=== PATIENT | male | born 1990 | race Caucasian/White ===

== ENCOUNTER 2018-10-31 14:43 | Emergency (ER) | payer MEDICAID, SELFPAY ==
[2018-10-31 14:44] VITALS: BP 137/102; PULSE 102; RESP 16; TEMP 36.7; O2SAT 93; BMI 32.3
--- NOTE | 2018-10-31 15:13 | ED.VISSUMM ---
- ER Visit Summary Date of Service: 10/31/18 Chief Complaint: Sinus pressure History of Present Illness: The patient is a 27 M who presents with sinus pressure and pain is been getting worse over the past 3 days. Patient describes the pain as a pressure over the frontal and ethmoid areas. Patient denies any fevers or chills. Patient denies any rhinorrhea. Patient denies any sore throat. Patient denies any cough. Patient states he has been drinking water with no improvement. Physical Examination: Vital signs are stable. Patient is afebrile. Patient is in no acute distress. Tympanic membranes are occluded by cerumen bilaterally. Nasal mucosa is congested. There is no tenderness to percussion over the frontal or maxillary sinuses. Oropharynx is clear. Neck is supple. Trachea is midline. There is no JVD noted. Heart was regular rate and rhythm. Lungs are clear and equal bilaterally. Cranial nerves II through XII are intact. There are no focal motor or sensory deficits noted. Emergency Department Course and Treatment: Patient was given prescriptions for Flonase and Sudafed. Patient was advised that antibiotics are not indicated at this time. Patient was instructed to follow-up with his primary care physician in 5 to 7 days. Patient understood and was agreeable with the plan. All questions were answered. Disposition: Discharge home Impression: Sinus headache This note was generated with [employer] dictation software. It may contain incorrect words, spelling, and punctuation that were not noted in review of the chart prior to signing ED Disposition - Plan for ED Patient: Disposition: Home or Assisted Living Diagnosis: Sinus headache Instructions: Sinus Headache Prescriptions: Fluticasone 0.05% [Flonase Nasal [place]] 1 spray NASAL DAILY #1 bottle Prescription Printed Pseudoephedrine HCl [Sudafed 24-Hour] 240 mg PO DAILY PRN PRN #[id number] PRN Reason: Sinus Congestion Prescription Printed Referrals: Astrid Epperson NP-C [Primary Care Provider] - 5-7 Days
[2018-10-31 15:31] VITALS: BP 117/75
--- NOTE | 2018-10-31 16:17 | CM.ED ---
Social Work Referral: Transportation to home. Informant: Volunteer Met with patient in ER waiting room after patient has been discharged from the ER. Patient did not have transportation back to home. This social organization professor assisted patient in finding bus stop for [employer] as patient reported to have [employer] card. Patient was able to get on [place] [employer] bus. Keri MAHAN, CHERY
== END 2018-10-31 15:32 | disposition home or self-care (01) ==
PROVIDERS: Emergency Provider Emergency Medicine; Family Provider Nurse Practitioner Family; PCP Nurse Practitioner Family
DX: R51 Headache (principal); Z72.0 Tobacco use; F32.9 Major depressive disorder, single episode, unspecified; R56.9 Unspecified convulsions; Z79.899 Other long term (current) drug therapy
CPT/HCPCS: 99282

== ENCOUNTER 2019-01-02 03:26 | Emergency (ER) | payer MEDICAID, SELFPAY ==
[2019-01-02 03:27] VITALS: BP 143/89; PULSE 97; RESP 18; TEMP 36.6; O2SAT 97; BMI 33.0
--- NOTE | 2019-01-02 03:37 | RAD_ITS ---
STUDY: X-RAY - RIGHT ANKLE REASON FOR EXAM: Male, 28 years old. Pain after falling. TECHNIQUE: 2 view(s) of the ankle. COMPARISON: None. FINDINGS: Markedly comminuted distal tibial fracture extending from the distal shaft through the articular surface with one half shaft width lateral and anterior displacement of the dominant fracture fragments and mild anterior angulation. The comminution is most severe in the anterior distal tibia with there is additional peripheral displacement of several small fracture fragments. The tibial articular surface fracture fragments are splayed over the talar dome. A transverse fracture line extends through the medial malleolus, this fracture is not displaced. Acute fracture through the distal shaft of the fibula with one shaft width lateral and anterior displacement. Soft tissue swelling adjacent to the fractures. The talus, navicular, calcaneus, and other visualized bones of the foot show no apparent fracture. RAD/Ankle min 3 Views IMPRESSION: Markedly comminuted and displaced distal tibial fracture. Displaced fracture distal shaft of the fibula. Electronically Signed: Hola Brown, at 4:05 EDT Tel , Service support ,
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
[2019-01-02] MEDS: Ketorolac 30 MG/ML Syringe IV (03:40)
[2019-01-02 04:19] LABS: Absolute Lymphocyte Count 3.23 X10^3/uL (0.83-4.51); Absolute Neutrophil Count 10.8 X10^3/uL (2.0-7.7); Basophil# 0.07 X10^3/uL; Basophil% 0.4 % (0-1); Eosinophil# 0.29 X10^3/uL; Eosinophils% 1.9 % (0-5); Hematocrit 50.8 % (40-54); Hemoglobin 17.1 g/dL (13.0-16.5); Lymphocyte # 3.23 X10^3/ul (4.0); Lymphocyte % 20.6 % (19-41); Mean Corp Hgb Conc 33.7 g/dL (32-36); Mean Corpuscular Hgb 31.4 pg (27.0-32.0); Mean Corpuscular Volume 93.4 fL (80-94); Mean Platelet Vol. 11.2 fl (6.2-12.0); Monocyte% 6.4 % (0-10); NRBC Flagged by Analyzer 0 % (0-5); Neutrophil # 10.83 X10^3/uL (2.7-7.7); Neutrophil % 69.2 % (47-70); Platelet Count 216 K/mm3 (150-450); RBC Distribution Width CV 13.1 % (11.6-14.6); RBC Distribution Width SD 44.5 fl (35.1-43.9); Red Blood Count 5.44 M/mm3 (4.6-6.2); White Blood Count 15.7 K/mm3 (4.4-11.0)
[2019-01-02 04:29] LABS: Anion Gap 10 (5-15); BUN 7 mg/dL (7-18); BUN/Creat Ratio 5.6 RATIO (10-20); Calcium,Total 9.6 mg/dL (8.5-10.1); Chloride 108 mmol/L (98-107); Creatinine, Serum 1.24 mg/dL (0.70-1.30); EST Glomerular Filtration Rate 74 mL/min (>60); Est Glom Filt Rate - Afr Amer 89 mL/min (>60); Glucose 120 mg/dL (74-106); Potassium 3.7 mmol/L (3.5-5.1); Sodium Level 144 mmol/L (136-145)
[2019-01-02] MEDS: Morphine 4 MG/ML Syringe IV (05:15)
[2019-01-02 05:48] VITALS: BP 131/76; PULSE 94; RESP 18; TEMP 36.7; O2SAT 97
== END 2019-01-02 06:07 | disposition short-term general hospital (02) ==
PROVIDERS: Emergency Provider Emergency Medicine; Referring Provider Nurse Practitioner Family
DX: S82.871A Displaced pilon fracture of right tibia, initial encounter for closed fracture (principal); S82.831A Other fracture of upper and lower end of right fibula, initial encounter for closed fracture; F32.9 Major depressive disorder, single episode, unspecified; F20.9 Schizophrenia, unspecified; F41.9 Anxiety disorder, unspecified; F17.200 Nicotine dependence, unspecified, uncomplicated; W17.89XA Other fall from one level to another, initial encounter; Y93.89 Activity, other specified; Y92.008 Other place in unspecified non-institutional (private) residence as the place of occurrence of the external cause; Y99.8 Other external cause status
CPT/HCPCS: 73610; 80048; 85025; 96374; 96375; 99285; A4216

== ENCOUNTER 2019-01-10 19:10 | Inpatient (IN) | payer MEDICAID, SELFPAY ==
[2019-01-10 19:10] VITALS: BP 135/67; PULSE 102; RESP 18; TEMP 36.8; O2SAT 94
[2019-01-10 19:47] VITALS: BMI 31.8
[2019-01-10 19:57] VITALS: BP 136/70; PULSE 97; RESP 17; TEMP 36.9; O2SAT 93
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
[2019-01-10] MEDS: Senna/Docusate Sodium 1 Tablet 2 TABLET PO (22:06)
[2019-01-10] MEDS: traZODone 50 MG Tablet PO (22:07)
[2019-01-11] MEDS: oxyCODONE 5 MG Tablet PO ×5 (03:33→23:01)
--- NOTE | 2019-01-11 03:38 | NURSING ---
PT WAKES WITH PAIN TO R FOOT. MEDICATED. PT'S SENSATION IMPROVING TO R FOOT/LOWER LEG AND NO LONGER NUMBER.PT REMAINS UNABLE TO MOVE TOES R FOOT AT THIS TIME. FOOT IS WARM AND PINK. RLE REMAINS ELEVATED.
[2019-01-11] MEDS: Acetaminophen 325 MG Tablet 650 MG PO (04:10)
[2019-01-11 06:12] LABS: Absolute Lymphocyte Count 1.68 X10^3/uL (0.83-4.51); Absolute Neutrophil Count 16.3 X10^3/uL (2.0-7.7); Basophil# 0.03 X10^3/uL; Basophil% 0.2 % (0-1); Hematocrit 36.5 % (40-54); Hemoglobin 12.4 g/dL (13.0-16.5); Lymphocyte # 1.68 X10^3/ul (4.0); Lymphocyte % 8.5 % (19-41); Mean Corpuscular Hgb 31.2 pg (27.0-32.0); Mean Corpuscular Volume 91.7 fL (80-94); Mean Platelet Vol. 9.8 fl (6.2-12.0); Monocyte# 1.56 X10^3/uL; Monocyte% 7.9 % (0-10); NRBC Flagged by Analyzer 0 % (0-5); Neutrophil % 82.8 % (47-70); POSITIVE DIFFERENTIAL YES; Platelet Count 290 K/mm3 (150-450); RBC Distribution Width CV 12.4 % (11.6-14.6); RBC Distribution Width SD 41.6 fl (35.1-43.9); Red Blood Count 3.98 M/mm3 (4.6-6.2); White Blood Count 19.7 K/mm3 (4.4-11.0)
[2019-01-11 06:28] LABS: ALB/GLOB Ratio 0.7 RATIO (0.9-2.4); AST(SGOT) 42 U/L (15-37); Alanine Aminotransfer ALT/SGPT 136 U/L (16-61); Albumin, Serum 2.8 g/dL (3.2-5.0); Alkaline Phosphatase 117 U/L (45-117); Anion Gap 8 (5-15); BUN 8 mg/dL (7-18); BUN/Creat Ratio 11.8 RATIO (10-20); Chloride 106 mmol/L (98-107); Creatinine, Serum 0.68 mg/dL (0.70-1.30); EST Glomerular Filtration Rate 148 mL/min (>60); Est Glom Filt Rate - Afr Amer 179 mL/min (>60); Globulin 3.8 g/dL (2.2-4.2); Glucose 139 mg/dL (74-106); Potassium 3.8 mmol/L (3.5-5.1); Protein, Total 6.6 g/dL (6.4-8.2); Sodium Level 140 mmol/L (136-145)
[2019-01-11 06:29] LABS: Differential Indicated SCAN CRITERIA MET
[2019-01-11 07:03] VITALS: BP 136/70; PULSE 89; RESP 16; TEMP 36.9; O2SAT 94
[2019-01-11] MEDS: Divalproex (ER) 250 MG Tablet PO (07:48)
[2019-01-11] MEDS: Benztropine 2 MG Tablet 1 MG PO (07:48)
[2019-01-11] MEDS: Famotidine 20 MG Tablet PO ×2 (07:48→20:08)
[2019-01-11] MEDS: Senna/Docusate Sodium 1 Tablet 2 TABLET PO ×2 (07:49→20:08)
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
[2019-01-11 10:02] LABS: Pathologist Review Reviewed
[2019-01-11 10:55] LABS: Valproic Acid (Depakene) Level 10 ug/mL (50-100)
--- NOTE | 2019-01-11 11:30 | NURSING ---
[facility] of patient to have Lovenox while here for DVT prophylaxis per Dr. Esposito.
--- NOTE | 2019-01-11 13:57 | PCM.RU.PYE ---
Admission Information Status Changes from Prescreening?: No changes Identified Actual Problem List:: Mobility Impaired, Self Care Deficit Potential Problem List:: DVT, Bleeding, Infection, UTI, Aspiration, Falls, Skin Integrity, Depression Risk of Complications DVT: LMWH, DELANO Hose, Sequential Compression Device Bleeding: Monitor Lab Values, Nursing to Teach Precautions for anti-coagulation therapy., Wound, if applicable, to be assessed every shift., Stroke patients assessed for lethargy or change in status. Infection: Clinical Staff to Monitor for S/S of infection:, S/S of infection include fever, redness, warmth, etc. Urinary Tract Infection: Monitor for frequency, burning, discomfort, or incontinence., Nursing will obtain urine sample for urinalysis and C&S when ordered. Aspiration: Clinical staff will monitor for coughing, drooling, congestion., Speech will evaluate swallowing and dsyphasia., Nursing will monitor patient swallowing during meals. Falls: Patient will be evaluated for Fall Precautions, Patient will be placed on Fall Precautions as indicated per protocol. Skin Breakdown: Nursing will assess skin daily using assessment tool., Nursing will place on Skin Breakdown Precautions as indicated. Pain: Clinical staff will assess patient's pain level per protocol., Medications will be given, if needed, and the pain level reassessed., Other methods: Massage, distraction, decrease stimulus, etc. used PRN. Plan of Care Patient requires physician specializing in physical medicine and rehab oversight to provide close medical supervision of rehab issues including: Pain Management, Sleep Problems, Bowel and Bladder, Medical and co-morbidity Management, DVT prophylaxis, Rehabilitation Leadership, Coordination of treatment team Patient needs Physical Therapy: For a minimum of 1 hour, At least 5 out of 7 days Patient needs Physical Therapy to improve:: Mobility, Mobility, Mobility, Strengthening, Transfers, Stretching, ROM, Endurance, Stairs, Gait, Balance Patient needs Occupational Therapy: For a minimum of 1 hour, At least 5 out of 7 days Patient needs Occupational Therapy to improve ADL's incl.: Eating, Grooming, Bathing, Dressing, Toileting, Toilet transfers, Community Reintegration, Higher functioning activities, Household tasks, Adaptive Equipment, Splinting, Other activities as determined Patient requires speech therapy: For a minimum of 1 hour, At least 5 out of 7 days Patient requires speech therapy for: Swallowing, Cognition, Language Skills, Compensatory Strategies Patient requires 24/ Rehabilitation Nursing for: Pain Issues, Identifying and preventing risk factors, Monitoring and reporting current medical conditions, Assisting with ambulation, transfer, and all ADL's, Teaching patients about disease process and medications, Family teaching, Providing safe environment, Bowel and Bladder Issues, Skin integrity, Medication Management Patient needs Store Merchandiser/ Case Management for: Discharge Planning, Arranging Home Equipment or Services, Family Interventions Patient needs Dietary and Nutrition Services for: Adequate Nutrition, Nutritional Supplements, Nutritional Education Goals Patient will remain: free from falls, or injury at time of discharge. Patient will perform bed mobility at: MOD I level of assist. Patient will complete transfers from bed to chair at: MOD I level of assist. Patient will ambulate: 100 feet, with MOD I assist, with LRD Patient will complete upper body dressing at: MOD I level of assist. Patient will complete lower body dressing at: MOD I level of assist. Patient will complete toileting at: MOD I level of assist. Patient will perform bathing at: MOD I level of assist. Patient will complete grooming at: MOD I level of assist. Patient will complete home management skills at: MOD I level of assist. Patient will achieve: 12 stairs, at MOD I assist Patient will have pain level of: of 3 or less Patient's skin will: remain intact, free from infection. Patient will receive: adequate nutrition. Discharge Planning Pt Prognosis for Sig. Practical Improv. w/in Reasonable Time: Good Estimated Length of stay (days): 16 Anticipated D/C Destination: Home with Outpt Therapy Was Preadmission Assessment Accurate?: Yes
[2019-01-11] MEDS: Enoxaparin 40 MG/0.4 ML Syringe SC (13:59)
--- NOTE | 2019-01-11 16:17 | CHAPLAIN ---
Type of Pastoral Visit _x__ Initial Visit ___ Follow-up Visit ___ On-call Visit ___ General Patient Visit ___ Spiritual Assessment ___ Family Conference ___ Bereavement ___ Rapid Response ___ Code Blue ___ Other (describe below) Pastoral Care Referral From _x__ Patient ___ Family ___ Nurse ___ Physician ___ Smog Technician ___ Eyedotter ___ Other (describe below) Sacrament/Intervention _x__ Active listening ___ Anointing ___ Mormon ___ Bereavement ___ Communion ___ Bianka exploration ___ _x__ Life review ___ Prayer ___ Reconciliation ___ Sacrament of Sick _x__ Supportive presence ___ Wedding ___ Other (describe below) Pastoral Comments
[2019-01-11 16:20] VITALS: O2SAT 98
[2019-01-11 19:26] VITALS: BP 133/74; PULSE 92; RESP 18; TEMP 37.2; O2SAT 97
[2019-01-11] MEDS: Divalproex (ER) 500 MG Tablet PO (20:07)
[2019-01-11] MEDS: traZODone 50 MG Tablet PO (20:09)
[2019-01-11] MEDS: LURASIDONE HCL 120 MG TABLET PO (20:10)
[2019-01-12] MEDS: oxyCODONE 5 MG Tablet PO ×6 (02:38→23:22)
[2019-01-12] MEDS: Enoxaparin 40 MG/0.4 ML Syringe SC (06:17)
[2019-01-12 06:26] LABS: Absolute Lymphocyte Count 3.23 X10^3/uL (0.83-4.51); Absolute Neutrophil Count 6.9 X10^3/uL (2.0-7.7); Basophil# 0.04 X10^3/uL; Basophil% 0.4 % (0-1); Eosinophils% 0.9 % (0-5); Hematocrit 37.6 % (40-54); Hemoglobin 12.5 g/dL (13.0-16.5); Lymphocyte # 3.23 X10^3/ul (4.0); Lymphocyte % 28.6 % (19-41); Mean Corp Hgb Conc 33.2 g/dL (32-36); Mean Corpuscular Hgb 31.1 pg (27.0-32.0); Mean Corpuscular Volume 93.5 fL (80-94); Mean Platelet Vol. 9.7 fl (6.2-12.0); Monocyte# 0.95 X10^3/uL; Monocyte% 8.4 % (0-10); NRBC Flagged by Analyzer 0 % (0-5); Neutrophil # 6.92 X10^3/uL (2.7-7.7); Neutrophil % 61.1 % (47-70); Platelet Count 305 K/mm3 (150-450); RBC Distribution Width SD 44.8 fl (35.1-43.9); Red Blood Count 4.02 M/mm3 (4.6-6.2); White Blood Count 11.3 K/mm3 (4.4-11.0)
[2019-01-12 06:53] LABS: AST(SGOT) 42 U/L (15-37); Alanine Aminotransfer ALT/SGPT 128 U/L (16-61)
[2019-01-12] MEDS: Famotidine 20 MG Tablet PO ×2 (07:32→20:38)
[2019-01-12] MEDS: Benztropine 2 MG Tablet 1 MG PO (07:32)
[2019-01-12] MEDS: Senna/Docusate Sodium 1 Tablet 2 TABLET PO (07:32)
[2019-01-12] MEDS: Divalproex (ER) 250 MG Tablet PO (07:32)
[2019-01-12 08:00] VITALS: BP 127/56; PULSE 94; RESP 18; TEMP 37.2; O2SAT 95
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
[2019-01-12] MEDS: Divalproex (ER) 500 MG Tablet PO (20:38)
[2019-01-12] MEDS: LURASIDONE HCL 120 MG TABLET PO (20:38)
[2019-01-12] MEDS: traZODone 50 MG Tablet PO (20:38)
[2019-01-12 20:41] VITALS: BP 143/72; PULSE 99; RESP 16; TEMP 37; O2SAT 98
[2019-01-13] MEDS: oxyCODONE 5 MG Tablet PO ×6 (03:25→23:00)
[2019-01-13] MEDS: Enoxaparin 40 MG/0.4 ML Syringe SC (05:58)
[2019-01-13 07:22] VITALS: BP 130/72; PULSE 97; RESP 16; TEMP 36.7; O2SAT 95
[2019-01-13] MEDS: Benztropine 2 MG Tablet 1 MG PO (07:28)
[2019-01-13] MEDS: Senna/Docusate Sodium 1 Tablet 2 TABLET PO (07:29)
[2019-01-13] MEDS: Famotidine 20 MG Tablet PO ×2 (07:29→20:31)
[2019-01-13] MEDS: Divalproex (ER) 250 MG Tablet PO (07:29)
[2019-01-13 07:30] VITALS: O2SAT 95
[2019-01-13 18:53] VITALS: BP 125/70; PULSE 105; RESP 16; TEMP 37; O2SAT 98
[2019-01-13] MEDS: Divalproex (ER) 500 MG Tablet PO (20:30)
[2019-01-13] MEDS: traZODone 50 MG Tablet PO (20:30)
[2019-01-13] MEDS: LURASIDONE HCL 120 MG TABLET PO (20:31)
[2019-01-13 20:44] VITALS: RESP 18; O2SAT 97
[2019-01-14] MEDS: oxyCODONE 5 MG Tablet PO ×5 (03:00→20:27)
[2019-01-14] MEDS: Enoxaparin 40 MG/0.4 ML Syringe SC (05:04)
[2019-01-14 07:01] VITALS: BP 117/75; PULSE 100; RESP 16; TEMP 36.7; O2SAT 96
[2019-01-14] MEDS: Divalproex (ER) 250 MG Tablet PO (07:47)
[2019-01-14 09:32] VITALS: PULSE 60; O2SAT 96
[2019-01-14] MEDS: Famotidine 20 MG Tablet PO ×2 (10:22→21:03)
[2019-01-14] MEDS: Benztropine 2 MG Tablet 1 MG PO (10:23)
--- NOTE | 2019-01-14 13:20 | NURSING ---
1315 called into pt room, pt stated not feeling well. checked pt vs and vital signs stable, no temp noted. offered antionette jesse and warm blanket. will monitor. Keyon Rosario RN
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
[2019-01-14 17:57] VITALS: BP 144/69; PULSE 101; RESP 18; TEMP 36.4; O2SAT 98
[2019-01-14 19:55] VITALS: PULSE 101; RESP 18; O2SAT 98
[2019-01-14] MEDS: traZODone 50 MG Tablet PO (21:03)
[2019-01-14] MEDS: LURASIDONE HCL 120 MG TABLET PO (21:03)
[2019-01-14] MEDS: Senna/Docusate Sodium 1 Tablet 2 TABLET PO (21:03)
[2019-01-14] MEDS: Divalproex (ER) 500 MG Tablet PO (21:04)
--- NOTE | 2019-01-14 21:29 | NURSING ---
Pt refused SCDs this hs. Pt educated to the benefits of SCD use while in hospital and per Dr recommendation. Pt reiterated refusa;.
--- NOTE | 2019-01-14 22:24 | NURSING ---
pt calls staff into the room and reports that his leg is jumping while he is trying to sleep. staff offers to reposition leg for comfort and pt declined, pt was medicated earlier for pain, and unable to medicate at this time. rn made aware. pt encouraged to try and relax and would ask for something in the morning.
--- NOTE | 2019-01-15 03:39 | NURSING ---
Pt awake and playing on his phone. Pt calling staff to reconnect WIFI. Pt requested coffee at this time despite staff recommending pt try to get some rest in order to be well rested for therapy.
[2019-01-15] MEDS: oxyCODONE 5 MG Tablet PO ×4 (05:26→21:10)
[2019-01-15] MEDS: Enoxaparin 40 MG/0.4 ML Syringe SC (05:27)
[2019-01-15 05:32] LABS: Hematocrit 38.8 % (40-54); Hemoglobin 12.7 g/dL (13.0-16.5); Mean Corp Hgb Conc 32.7 g/dL (32-36); Mean Corpuscular Hgb 30.4 pg (27.0-32.0); Mean Corpuscular Volume 92.8 fL (80-94); Mean Platelet Vol. 9.5 fl (6.2-12.0); Platelet Count 359 K/mm3 (150-450); RBC Distribution Width CV 12.7 % (11.6-14.6); RBC Distribution Width SD 43.7 fl (35.1-43.9); Red Blood Count 4.18 M/mm3 (4.6-6.2); White Blood Count 10.6 K/mm3 (4.4-11.0)
[2019-01-15 05:38] LABS: International Normalized Ratio 1.1
[2019-01-15 05:39] LABS: Partial Thromboplast Time 33.3 Seconds (24.1-36.2)
[2019-01-15 05:59] LABS: ALB/GLOB Ratio 0.7 RATIO (0.9-2.4); AST(SGOT) 24 U/L (15-37); Alanine Aminotransfer ALT/SGPT 82 U/L (16-61); Albumin, Serum 2.8 g/dL (3.2-5.0); Alkaline Phosphatase 132 U/L (45-117); Anion Gap 8 (5-15); BUN 11 mg/dL (7-18); BUN/Creat Ratio 12.2 RATIO (10-20); Calcium,Total 9.3 mg/dL (8.5-10.1); Chloride 103 mmol/L (98-107); EST Glomerular Filtration Rate 106 mL/min (>60); Est Glom Filt Rate - Afr Amer 128 mL/min (>60); Estimated Creatinine Clearance 146.05 ml/min; Globulin 3.9 g/dL (2.2-4.2); Glucose 90 mg/dL (74-106); Potassium 4.2 mmol/L (3.5-5.1); Protein, Total 6.7 g/dL (6.4-8.2); Sodium Level 141 mmol/L (136-145)
[2019-01-15 07:01] VITALS: BP 109/64; PULSE 89; RESP 16; TEMP 36.8; O2SAT 95
[2019-01-15] MEDS: Divalproex (ER) 250 MG Tablet PO (07:40)
[2019-01-15] MEDS: Benztropine 2 MG Tablet 1 MG PO (07:41)
[2019-01-15] MEDS: Famotidine 20 MG Tablet PO ×2 (07:42→21:11)
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
--- NOTE | 2019-01-15 10:09 | CASEMGMT ---
Social Work IDT met with patient for Team Meeting. Discussed patient progressing in therapy. Requiring min assist sit to stand, mod assist to complete one step and LE dressing, bathing, toileting, and 25 ft mod assist as well. Patient cannot return to retirement d/t bed bugs. The plan is to DC home with mother with several steps to enter. Mother works night stocker and unable to attend this Team Meeting - left message with updates, per her request. Explained insurance update 01/16 and continued stay is not guaranteed. Will continue to follow. NEGRITO Jaime FISHER MUSSEL
[2019-01-15] MEDS: tiZANidine HCl 2 MG Tablet PO ×2 (10:12→21:11)
[2019-01-15 19:25] VITALS: BP 105/67; PULSE 84; RESP 18; TEMP 37; O2SAT 94
[2019-01-15] MEDS: traZODone 50 MG Tablet PO (21:11)
[2019-01-15] MEDS: Senna/Docusate Sodium 1 Tablet 2 TABLET PO (21:11)
[2019-01-15] MEDS: Divalproex (ER) 500 MG Tablet PO (21:11)
[2019-01-15] MEDS: LURASIDONE HCL 120 MG TABLET PO (21:11)
--- NOTE | 2019-01-15 21:49 | NURSING ---
Pt refused SCD to RLE despite staff education of benefits of use.
[2019-01-15 21:56] VITALS: PULSE 84; RESP 18; O2SAT 94
[2019-01-16] MEDS: Enoxaparin 40 MG/0.4 ML Syringe SC (06:05)
[2019-01-16] MEDS: oxyCODONE 5 MG Tablet PO ×3 (06:05→21:28)
[2019-01-16 07:00] VITALS: BP 118/63; PULSE 93; RESP 17; TEMP 36.6; O2SAT 95
[2019-01-16] MEDS: Senna/Docusate Sodium 1 Tablet 2 TABLET PO ×2 (08:06→21:28)
[2019-01-16] MEDS: Benztropine 2 MG Tablet 1 MG PO (08:06)
[2019-01-16] MEDS: Divalproex (ER) 250 MG Tablet PO (08:06)
[2019-01-16] MEDS: Famotidine 20 MG Tablet PO ×2 (08:07→21:28)
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
[2019-01-16] MEDS: tiZANidine HCl 2 MG Tablet PO ×2 (15:52→23:56)
[2019-01-16 19:35] VITALS: BP 121/70; PULSE 89; RESP 17; TEMP 36.6; O2SAT 98
[2019-01-16 19:43] VITALS: PULSE 89; RESP 17; O2SAT 98
[2019-01-16] MEDS: Divalproex (ER) 500 MG Tablet PO (21:27)
[2019-01-16] MEDS: traZODone 50 MG Tablet PO (21:28)
[2019-01-16] MEDS: LURASIDONE HCL 120 MG TABLET PO (21:28)
[2019-01-17] MEDS: oxyCODONE 5 MG Tablet PO ×4 (06:03→21:36)
[2019-01-17] MEDS: Enoxaparin 40 MG/0.4 ML Syringe SC (06:03)
--- NOTE | 2019-01-17 06:26 | NURSING ---
pt refused a.m. ADLs or to at least change clothes. Oral care performed by pt with encouragement.
[2019-01-17 06:58] VITALS: BP 106/61; PULSE 94; RESP 16; TEMP 36.4; O2SAT 95
[2019-01-17] MEDS: Divalproex (ER) 250 MG Tablet PO (08:25)
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
[2019-01-17] MEDS: Senna/Docusate Sodium 1 Tablet 2 TABLET PO ×2 (09:08→21:37)
[2019-01-17] MEDS: Famotidine 20 MG Tablet PO ×2 (09:08→21:37)
[2019-01-17] MEDS: Benztropine 2 MG Tablet 1 MG PO (09:08)
[2019-01-17] MEDS: tiZANidine HCl 2 MG Tablet PO ×2 (12:19→20:18)
--- NOTE | 2019-01-17 16:45 | CASEMGMT ---
Social Work Notified patient and left message with mother that insurance approved pt with [facility] 01/23. Will ReTeam Monday 01/22. Delia Hill, END USER CONSULTANT TRIAL [employer]
[2019-01-17 18:46] VITALS: BP 122/68; PULSE 95; RESP 18; TEMP 36.4; O2SAT 98
[2019-01-17] MEDS: Divalproex (ER) 500 MG Tablet PO (21:37)
[2019-01-17] MEDS: LURASIDONE HCL 120 MG TABLET PO (21:37)
[2019-01-17] MEDS: traZODone 50 MG Tablet PO (21:45)
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
[2019-01-18] MEDS: Enoxaparin 40 MG/0.4 ML Syringe SC (06:11)
[2019-01-18] MEDS: oxyCODONE 5 MG Tablet PO ×3 (06:11→20:22)
[2019-01-18 07:10] VITALS: BP 115/61; PULSE 91; RESP 12; TEMP 36.9; O2SAT 95
[2019-01-18] MEDS: Benztropine 2 MG Tablet 1 MG PO (09:08)
[2019-01-18] MEDS: Famotidine 20 MG Tablet PO ×2 (09:08→20:23)
[2019-01-18] MEDS: Divalproex (ER) 250 MG Tablet PO (09:08)
[2019-01-18] MEDS: Senna/Docusate Sodium 1 Tablet 2 TABLET PO ×2 (09:08→20:23)
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
[2019-01-18 18:49] VITALS: BP 127/71; PULSE 96; RESP 18; TEMP 36.6; O2SAT 96
[2019-01-18] MEDS: Divalproex (ER) 500 MG Tablet PO (20:23)
[2019-01-18] MEDS: traZODone 50 MG Tablet PO (20:23)
[2019-01-18] MEDS: LURASIDONE HCL 40 MG TABLET 120 MG PO (20:25)
[2019-01-19] MEDS: Enoxaparin 40 MG/0.4 ML Syringe SC (06:06)
[2019-01-19] MEDS: oxyCODONE 5 MG Tablet PO ×3 (06:06→16:40)
[2019-01-19 08:00] VITALS: BP 124/61; PULSE 91; RESP 16; TEMP 36.6; O2SAT 96
[2019-01-19] MEDS: Benztropine 2 MG Tablet 1 MG PO (08:14)
[2019-01-19] MEDS: Famotidine 20 MG Tablet PO (08:14)
[2019-01-19] MEDS: Senna/Docusate Sodium 1 Tablet 2 TABLET PO (08:15)
[2019-01-19] MEDS: Divalproex (ER) 250 MG Tablet PO (08:15)
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
--- NOTE | 2019-01-19 15:37 | CASEMGMT ---
Social Work [place] received auth - pt okay to transfer. Scheduled cot transport with [facility] for 6 pm. IDT, pt and mother notified. 7000 completed. Delia Hill MSW HAMMERER TAB
--- NOTE | 2019-01-19 15:54 | PCM.EXTCARCO ---
- Diet 01/10/19 19:56 Diet: Regular Diet Food consistency:: Soft Liquid Consistency:: Regular/Thin Diet Comments: poor dentation - Routine Orders/Code Status Enema Type: soap suds Enema Frequency: Daily PRN Suppository Type: Dulcolax 10mg Suppository Frequency: Daily PRN O2 Frequency: PRN Keep PO Greater than or Equal to (%): 92 - Wound(s) RLE-EXTERNAL FIXATORS Wound Type: Surgical Incision DISTAL PIN LATERAL FOOT Wound Type: SURGICAL PIN MIDDLE PIN R LATERAL FOOT Wound Type: SURGICAL PIN PROXIMAL PIN R LATERAL FOOT Wound Type: SURGICAL PIN DISTAL SURGICAL PIN MEDIAL ASPECT R FOOT Wound Type: SURGICAL PIN MIDDLE SURGICAL PIN SITE MEDIAL ASPECT R FOOT Wound Type: SURGICAL PIN PROXIMAL SURGICAL PIN SITE MEDIAL ASPECT R FOOT Wound Type: SURGICAL PIN RLL pins Wound Type: Surgical Incision proximal right abarca Wound Type: Abrasion right lower leg Wound Type: Surgical Incision - Therapies Weight Bearing: Non weight bearing Extremity Affected:: Right Lower Physical Therapy: Eval and Treat Occupational Therapy: Eval and Treat - Allergies/Procedures Done in Hospital Allergies/Adverse Reactions: Allergies No Known Allergies Allergy (Verified 01/02/19 03:31) - Type of Care/Length of Stay Estimated LOS: Convalescent Care Less Than 30 days Type of Care Needed: Skilled Rehab Potential: Fair Prognosis: Fair - Additional Orders/Day of Discharge Additional Orders: O.K. to shower. Dressing change to right LE exteranl fixation: CLEAN PIN AND AROUND PIN SITE WITH 5O/50 WATER/ HYDROGEN PEROXIDE. REWRAP AROUND EACH PIN WITH DRY DSG. Call dr baylee villeda office to reevaluate for further lovenox administration H&P will serve as current which was dated: 01/11/19 Day of Discharge: 01/19/19 - Dietary and Speech Recommendations Dietitian Recommendations/Changes: Recommend continue regular diet w/ texture modifications as needed. - Follow Up Care Primary Care Physician: Felisha Stein [Primary Care Provider] - Please Follow Up With: Baylee Villeda When: 01/23/19 @ 0810 Please Follow Up With: DR. Fabian When: 02/01/19 @ 2:00 pm
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
--- NOTE | 2019-01-19 17:33 | NURSING ---
Report given to [facility].
== END 2019-01-19 18:30 | disposition skilled nursing facility (03) | DRG 862 ==
PROVIDERS: Nurse Practitioner Family; Admitting Provider Psychiatry & Neurology Neurology; Referring Provider Student in an Organized Health Care Education/Training Program; Visit Provider Hospitalist
DX: S82.871D Displaced pilon fracture of right tibia, subsequent encounter for closed fracture with routine healing (principal); S82.831D Other fracture of upper and lower end of right fibula, subsequent encounter for closed fracture with routine healing; S32.038D Other fracture of third lumbar vertebra, subsequent encounter for fracture with routine healing; F31.9 Bipolar disorder, unspecified; F41.9 Anxiety disorder, unspecified; F20.9 Schizophrenia, unspecified; K21.9 Gastro-esophageal reflux disease without esophagitis; F17.210 Nicotine dependence, cigarettes, uncomplicated; E66.9 Obesity, unspecified; Z68.31 Body mass index [BMI] 31.0-31.9, adult; Z71.3 Dietary counseling and surveillance; M41.9 Scoliosis, unspecified; G89.29 Other chronic pain; W17.89XD Other fall from one level to another, subsequent encounter; K59.01 Slow transit constipation; G40.409 Other generalized epilepsy and epileptic syndromes, not intractable, without status epilepticus; R21 Rash and other nonspecific skin eruption
CPT/HCPCS: 36415; 80053; 80164; 84450; 84460; 85025; 85027; 85610; 85730; 97110; 97116; 97162; 97166; 97530; 97535; 97542; 97802; 99406

== ENCOUNTER → 2019-06-23 11:15 | Outpatient (CLI) | payer MEDICAID, SELFPAY ==
[2019-01-10 19:47] VITALS: BMI 31.8
--- NOTE | 2019-06-23 11:18 | CT_ITS ---
CT of the right ankle without contrast INDICATION: Follow-up fracture. COMPARISON: X-ray 01/02/2019 next TECHNIQUE: Multiple thin section axial CT images of the right ankle were obtained without the ministration of intravenous contrast and filmed in soft tissue and bone windows. Furthermore, multiple sagittal, coronal reconstructions were performed. FINDINGS: No abnormal soft tissue mass, lymphadenopathy, fluid collection. Some lateral soft tissue swelling. An external fixator is in place. Multiple screws through the distal tibia. There is a nonunion of a spiral fracture of the distal tibia with callus formation but a prominent corticated distracted fracture line still present. There is an anteriorly displaced oblique fracture of the distal shaft of the fibula which appears healed with callus formation. 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 Electronically Signed: Sarkis Dumont MD at 9:00 EST Tel , Service support , CT/Extremity Lower without Contra
== END ==
PROVIDERS: Referring Provider Orthopaedic Surgery; Visit Provider Orthopaedic Surgery
DX: S82.871D Displaced pilon fracture of right tibia, subsequent encounter for closed fracture with routine healing (principal)
CPT/HCPCS: 73700

== ENCOUNTER → 2024-02-01 | Outpatient (CLI) | payer MEDICAID, SELFPAY ==
[2024-02-01 11:08] LABS: ALB/GLOB Ratio 1.3 RATIO (0.9-2.4); AST(SGOT) 11 U/L (15-37); Alanine Aminotransfer ALT/SGPT 28 U/L (16-61); Albumin, Serum 3.9 g/dL (3.2-5.0); Alkaline Phosphatase 65 U/L (45-117); Anion Gap 6 (5-15); BUN 10 mg/dL (7-18); BUN/Creat Ratio 13.9 RATIO (10-20); Calcium,Total 9.2 mg/dL (8.5-10.1); Chloride 111 mmol/L (98-107); Cholesterol 113 mg/dL (200); Creatinine, Serum 0.72 mg/dL (0.70-1.30); EST Glomerular Filtration Rate 133 mL/min (>60); Est Glom Filt Rate - Afr Amer 161 mL/min (>60); Glucose 95 mg/dL (74-106); High Density Lipoprotein 47 mg/dL; Potassium 4.1 mmol/L (3.5-5.1); Protein, Total 6.9 g/dL (6.4-8.2); Sodium Level 141 mmol/L (136-145); Triglycerides 84 mg/dL; Very Low Density Lipoprotein 17 mg/dL (5-40)
[2024-02-01 12:04] LABS: Absolute Lymphocyte Count 2.66 X10^3/uL (0.83-4.51); Absolute Neutrophil Count 3.7 X10^3/uL (2.0-7.7); Basophil# 0.03 X10^3/uL; Basophil% 0.4 % (0-1); Eosinophil# 0.28 X10^3/uL; Eosinophils% 3.9 % (0-5); Hematocrit 48.4 % (40-54); Lymphocyte # 2.66 X10^3/ul (0.83-4.51); Lymphocyte % 36.7 % (19-41); Mean Corp Hgb Conc 33.1 g/dL (32-36); Mean Corpuscular Hgb 31.4 pg (27.0-32.0); Mean Corpuscular Volume 94.9 fL (80-94); Mean Platelet Vol. 11.5 fl (6.2-12.0); Monocyte# 0.55 X10^3/uL; Monocyte% 7.6 % (0-10); NRBC Flagged by Analyzer 0 % (0-5); Neutrophil % 51.1 % (47-70); Platelet Count 217 K/mm3 (150-450); RBC Distribution Width CV 12.4 % (11.6-14.6); White Blood Count 7.2 K/mm3 (4.4-11.0)
[2024-02-01 12:32] LABS: Hemoglobin A1c 4.9 % (3.8-5.6)
== END | disposition home or self-care (01) ==
LOC: BIMLAB 08:20
PROVIDERS: PCP Family Medicine; Referring Provider Registered Nurse; Visit Provider Family Medicine
DX: Z79.899 Other long term (current) drug therapy (principal); Z13.228 Encounter for screening for other metabolic disorders; Z13.6 Encounter for screening for cardiovascular disorders
CPT/HCPCS: 36415; 80053; 80061; 82140; 83036; 84146; 84443; 85025

== ENCOUNTER 2024-10-31 13:35 | Emergency (ER) | payer MEDICAID, SELFPAY ==
[2024-10-31 13:35] VITALS: BP 130/96; PULSE 96; RESP 16; TEMP 36.5; O2SAT 96
--- NOTE | 2024-10-31 14:34 | EDS_ITS ---
HPI History of Present Illness Chief Complaint: Abd Pain PFSH PFS Home Medications ?Medication ?Instructions ?Recorded ?Last Taken ?Type benztropine 2 mg tablet 1 mg (1/2 x 2 mg) PO DAILY 0 01/19/19 Unknown Rx cholecalciferol (vitamin D3) 25 2,000 unit PO DAILY Unknown Rx mcg (1,000 unit) tablet divalproex 250 mg tablet,extended 250 mg PO BREAKFAST 01/19/19 Unknown Rx release 24 hr divalproex 500 mg tablet,extended 500 mg PO QHS ##30 0 01/19/19 Unknown Rx release 24 hr lurasidone 40 mg tablet 120 mg (3 x 40 mg) PO QHS Unknown Rx sennosides 8.6 mg-docusate sodium 2 tab PO BID 9 Unknown Rx 50 mg tablet tizanidine 2 mg tablet 2 mg PO Q8H PRN PRN Muscle S pasm 01/19/19 Unknown Rx trazodone 50 mg tablet 50 mg PO QHS 01/19/19 Unknow n Rx paliperidone 6 mg tablet,extended 6 mg PO QHS 10/31/24 Unknown History release 24 hr Allergy/AdvReac Type Severity Reaction Status Date / Time No Known Allergies Allergy Verified 10/31/24 13:37 Social History Smoking Status: Current every day smoker tobacco type: cigarettes EXAM Physical Exam Const Vital Signs: 10/31/24 13:35 10/31/24 15:35 Temperature 97.7 F L Temperature Source Temporal Pulse Rate 96 71 Respiratory Rate 16 16 Blood Pressure 130/96 H 128/86 H Blood Pressure Mean 107 100 Pulse Ox 96 99 Oxygen Delivery Method Room Air [facility] MDM Narrative Medical decision making narrative: HISTORY OF PRESENT ILLNESS: Chief complaint: Abdominal pain 33-year-old male history of schizophrenia, anxiety depression, tobacco abuse, GERD and obesity presents abdominal pain. States he was walking and had 8 cycles of sharp upper abdominal pain. He states members at his fpc called EMS secondary to him being in pain. He notes the pain alleviated suddenly. He is not in pain now. Pain is located epigastrium. He denies vomiting or diarrhea. Denies fever or chills. Denies chest pain or shortness of breath. Denies history abdominal surgeries. REVIEW OF SYSTEMS: Pertinent positives: Abdominal pain Pertinent negatives: As per HPI PHYSICAL EXAM: Nursing triage notes reviewed, Vital signs reviewed Constitutional: please see [facility] HENT: MMM Eyes: Pupils equal round and reactive to light, Extraocular muscles intact Neck: No stridor, no JVD, full neck ROM Lungs: Clear to auscultation, No wheezing or rales. No increased work of breathing, no conversational dyspnea, no accessory muscle use, no nasal flaring. No respiratory distress noted Heart: Regular rate and rhythm, No murmurs, No rubs and No gallops, 2+ distal pulses (radial, femoral, posterior tibial) in all extremities Abdomen: Soft, there is no tenderness, rigidity, rebound or guarding, no obvious peritoneal signs, no palpable pulsatile abdominal masses, no auscultated abdominal bruit : No CVAT Extremities: No edema Neuro: No new focal neurological deficits, cranial nerves II through XII intact, 5/5 strength in all present extremities. Intact sensation to light touch in all present extremities, 2+ reflexes bilateral patella tendons. Skin: No rash or lesions noted MEDICAL DECISION MAKING: Chief Complaint: please see [facility] External records reviewed: Reviewed prior imaging Factors affecting care: As per HPI Social determinants of health: history of mental health disorder History obtained from others: EMS Consults: none [facility] Narrative: The patient was initially hemodynamically stable, afebrile and nontoxic- appearing. Exam completed benign with no elicited tenderness. I considered the following differential diagnosis: AAA, small bowel obstruction, abdominal perforation, appendicitis, pancreatitis, hepatobiliary pathology (acute cholecystitis), mesenteric ischemia, pathology (ie nephrolithiasis, pyelonephritis), atypical ACS, arrhythmia, pneumonia I obtained a broad lab and imaging workup to further determine if the patient was suffering from a life-threatening etiology. Given patient symptomatic I did not treat with any medicines initially just gave a 500 cc bolus for initial resuscitation ALL IMAGES (IF OBTAINED) HAVE BEEN PERSONALLY REVIEWED AND INTERPRETED BY MYSELF. EKG with sinus rhythm, first-degree AV block with a prolonged MT interval, no high degree block normal axis, bundle branch block CBC without leukocytosis, severe anemia, no thrombocytopenia. I have personally reviewed the patient's chest x-ray. Chest x-ray is unremarkable for pulmonary edema, pneumothorax, pneumonia or focal cardiopulmonary abnormality. No evidence of intraperitoneal free air to suggest solid organ perforation. The patient and/or family, caregivers express understanding. The patient and/or family, caregivers agrees with the plan. High-sensitivity troponin is negative, no evidence of myocardial ischemia CMP without evidence of acute kidney injury, significant electrolyte abnormality, anion gap to suggest end organ hypo-perfusion, no evidence of metabolic acidosis with a normal bicarbonate, no evidence of hepatobiliary obstructive pathology. Lipase is wnl indicating no pancreatic inflammation. Repeat abdominal exam is benign. The synthesis of the patient history and physical exam suggest no acute life-limiting etiology. Patient was in no pain. Unclear etiology PCP follow-up recommended. Return precautions discussed Shared decision making: I will have a discussion with the patient and or visitors regarding risk/benefits of further testing or admission. They will be made aware of of the risk/benefits inherent in this decision they will be given the opportunity to voice understanding. Total critical care time today provided was at least 0 minutes. This excludes separately billable procedures. Critical care time (if documented) is secondary to the patient having high probability of clinically significant/life threatening deterioration in the patient's condition which required my urgent intervention. Impression: 1. Epigastric abdominal pain 2. History of GERD Dispo: Discharge home This note was generated with [employer] dictation software. It may contain incorrect words, spelling, and punctuation that were not noted in review of the chart prior to signing. Lab Data Labs: Laboratory Results - last 24 hr 10/31/24 15:17 WBC 8.7 RBC 4.78 Hgb 15.0 Hct 43.5 MCV 91.0 MCH 31.4 MCHC 34.5 RDW Std Deviation 42.0 RDW Coeff of [place] 12.6 Plt Count 204 MPV 10.8 Immature Gran % (Auto) 0.300 Neut % (Auto) 55.0 Lymph % (Auto) 28.1 [place] % (Auto) 7.5 Eos % (Auto) 8.5 H Baso % (Auto) 0.6 Absolute Neuts (auto) 4.8 Absolute Lymphs (auto) 2.44 Nucleated RBC % 0 Sodium 142 Potassium 4.1 Chloride 109 H Carbon Dioxide 23.4 Anion Gap 9 BUN 13 Creatinine 0.76 Est GFR (MDRD) Non-Af 122 BUN/Creatinine Ratio 17.1 Glucose 92 Calcium 9.4 Total Bilirubin 0.80 AST 21 ALT 32 Alkaline Phosphatase 76 Troponin T High Sens < 6 Total Protein 6.5 Albumin 4.2 Globulin 2.3 Albumin/Globulin Ratio 1.8 Lipase 12 L Radiography Diagnostic Testing: Clinical Impression(s) from Imaging Studies Chest X-Ray 10/31/24 15:22 IMPRESSION: No evidence of pneumoperitoneum. No evidence of significant pulmonary edema. Lungs appear clear of acute disease. No pleural effusion or pneumothorax is noted. The cardiomediastinal silhouette is within the normal range. No acute osseous change is evident Reading Location: [place] [id number] Discharge Plan Triage Chief Complaint: Abd Pain ED Provider: Jimbo Klein Dx/Rx/DC Orders Prescriptions: No Action tizanidine 2 MG tablet 2 mg PO Q8H PRN PRN (Reason: Muscle Spasm) 0RF trazodone 50 MG tablet 50 mg PO QHS 0RF sennosides-docusate sodium 1 TABLET tablet 2 tab PO BID 0RF benztropine 2 MG tablet 1 mg PO DAILY 0RF divalproex 250 MG tablet 250 mg PO BREAKFAST 0RF cholecalciferol (vitamin D3) 1,000 UNIT tablet 2,000 unit PO DAILY 0RF lurasidone 40 MG tablet 120 mg PO QHS 0RF divalproex 500 MG tablet extended release 24 hr 500 mg PO QHS Qty: 30 3RF paliperidone 6 mg tablet extended release 24hr 6 mg PO QHS Primary Care Provider: Honey Haro Referrals: Honey Haro, DO [Primary Care Provider] - Print Language: Azerbaijani
--- NOTE | 2024-10-31 14:34 | EDS_ITS ---
HPI History of Present Illness Chief Complaint: Abd Pain PFSH PFS Home Medications ?Medication ?Instructions ?Recorded ?Last Taken ?Type benztropine 2 mg tablet 1 mg (1/2 x 2 mg) PO DAILY 0 01/19/19 Unknown Rx cholecalciferol (vitamin D3) 25 2,000 unit PO DAILY Unknown Rx mcg (1,000 unit) tablet divalproex 250 mg tablet,extended 250 mg PO BREAKFAST 01/19/19 Unknown Rx release 24 hr divalproex 500 mg tablet,extended 500 mg PO QHS ##30 0 01/19/19 Unknown Rx release 24 hr lurasidone 40 mg tablet 120 mg (3 x 40 mg) PO QHS Unknown Rx sennosides 8.6 mg-docusate sodium 2 tab PO BID 9 Unknown Rx 50 mg tablet tizanidine 2 mg tablet 2 mg PO Q8H PRN PRN Muscle S pasm 01/19/19 Unknown Rx trazodone 50 mg tablet 50 mg PO QHS 01/19/19 Unknow n Rx paliperidone 6 mg tablet,extended 6 mg PO QHS 10/31/24 Unknown History release 24 hr Allergy/AdvReac Type Severity Reaction Status Date / Time No Known Allergies Allergy Verified 10/31/24 13:37 Social History Smoking Status: Current every day smoker tobacco type: cigarettes EXAM Physical Exam Const Vital Signs: 10/31/24 13:35 10/31/24 15:35 Temperature 97.7 F L Temperature Source Temporal Pulse Rate 96 71 Respiratory Rate 16 16 Blood Pressure 130/96 H 128/86 H Blood Pressure Mean 107 100 Pulse Ox 96 99 Oxygen Delivery Method Room Air [facility] MDM Narrative Medical decision making narrative: HISTORY OF PRESENT ILLNESS: Chief complaint: Abdominal pain 33-year-old male history of schizophrenia, anxiety depression, tobacco abuse, GERD and obesity presents abdominal pain. States he was walking and had 8 cycles of sharp upper abdominal pain. He states members at his residential called EMS secondary to him being in pain. He notes the pain alleviated suddenly. He is not in pain now. Pain is located epigastrium. He denies vomiting or diarrhea. Denies fever or chills. Denies chest pain or shortness of breath. Denies history abdominal surgeries. REVIEW OF SYSTEMS: Pertinent positives: Abdominal pain Pertinent negatives: As per HPI PHYSICAL EXAM: Nursing triage notes reviewed, Vital signs reviewed Constitutional: please see [facility] HENT: MMM Eyes: Pupils equal round and reactive to light, Extraocular muscles intact Neck: No stridor, no JVD, full neck ROM Lungs: Clear to auscultation, No wheezing or rales. No increased work of breathing, no conversational dyspnea, no accessory muscle use, no nasal flaring. No respiratory distress noted Heart: Regular rate and rhythm, No murmurs, No rubs and No gallops, 2+ distal pulses (radial, femoral, posterior tibial) in all extremities Abdomen: Soft, there is no tenderness, rigidity, rebound or guarding, no obvious peritoneal signs, no palpable pulsatile abdominal masses, no auscultated abdominal bruit : No CVAT Extremities: No edema Neuro: No new focal neurological deficits, cranial nerves II through XII intact, 5/5 strength in all present extremities. Intact sensation to light touch in all present extremities, 2+ reflexes bilateral patella tendons. Skin: No rash or lesions noted MEDICAL DECISION MAKING: Chief Complaint: please see [facility] External records reviewed: Reviewed prior imaging Factors affecting care: As per HPI Social determinants of health: history of mental health disorder History obtained from others: EMS Consults: none [facility] Narrative: The patient was initially hemodynamically stable, afebrile and nontoxic- appearing. Exam completed benign with no elicited tenderness. I considered the following differential diagnosis: AAA, small bowel obstruction, abdominal perforation, appendicitis, pancreatitis, hepatobiliary pathology (acute cholecystitis), mesenteric ischemia, pathology (ie nephrolithiasis, pyelonephritis), atypical ACS, arrhythmia, pneumonia I obtained a broad lab and imaging workup to further determine if the patient was suffering from a life-threatening etiology. Given patient symptomatic I did not treat with any medicines initially just gave a 500 cc bolus for initial resuscitation ALL IMAGES (IF OBTAINED) HAVE BEEN PERSONALLY REVIEWED AND INTERPRETED BY MYSELF. EKG with sinus rhythm, first-degree AV block with a prolonged MO interval, no high degree block normal axis, bundle branch block CBC without leukocytosis, severe anemia, no thrombocytopenia. I have personally reviewed the patient's chest x-ray. Chest x-ray is unremarkable for pulmonary edema, pneumothorax, pneumonia or focal cardiopulmonary abnormality. No evidence of intraperitoneal free air to suggest solid organ perforation. The patient and/or family, caregivers express understanding. The patient and/or family, caregivers agrees with the plan. High-sensitivity troponin is negative, no evidence of myocardial ischemia CMP without evidence of acute kidney injury, significant electrolyte abnormality, anion gap to suggest end organ hypo-perfusion, no evidence of metabolic acidosis with a normal bicarbonate, no evidence of hepatobiliary obstructive pathology. Lipase is wnl indicating no pancreatic inflammation. Repeat abdominal exam is benign. The synthesis of the patient history and physical exam suggest no acute life-limiting etiology. Patient was in no pain. Unclear etiology PCP follow-up recommended. Return precautions discussed Shared decision making: I will have a discussion with the patient and or visitors regarding risk/benefits of further testing or admission. They will be made aware of of the risk/benefits inherent in this decision they will be given the opportunity to voice understanding. Total critical care time today provided was at least 0 minutes. This excludes separately billable procedures. Critical care time (if documented) is secondary to the patient having high probability of clinically significant/life threatening deterioration in the patient's condition which required my urgent intervention. Impression: 1. Epigastric abdominal pain 2. History of GERD Dispo: Discharge home This note was generated with [employer] dictation software. It may contain incorrect words, spelling, and punctuation that were not noted in review of the chart prior to signing. Lab Data Labs: Laboratory Results - last 24 hr 10/31/24 15:17 WBC 8.7 RBC 4.78 Hgb 15.0 Hct 43.5 MCV 91.0 MCH 31.4 MCHC 34.5 RDW Std Deviation 42.0 RDW Coeff of [place] 12.6 Plt Count 204 MPV 10.8 Immature Gran % (Auto) 0.300 Neut % (Auto) 55.0 Lymph % (Auto) 28.1 [place] % (Auto) 7.5 Eos % (Auto) 8.5 H Baso % (Auto) 0.6 Absolute Neuts (auto) 4.8 Absolute Lymphs (auto) 2.44 Nucleated RBC % 0 Sodium 142 Potassium 4.1 Chloride 109 H Carbon Dioxide 23.4 Anion Gap 9 BUN 13 Creatinine 0.76 Est GFR (MDRD) Non-Af 122 BUN/Creatinine Ratio 17.1 Glucose 92 Calcium 9.4 Total Bilirubin 0.80 AST 21 ALT 32 Alkaline Phosphatase 76 Troponin T High Sens < 6 Total Protein 6.5 Albumin 4.2 Globulin 2.3 Albumin/Globulin Ratio 1.8 Lipase 12 L Radiography Diagnostic Testing: Clinical Impression(s) from Imaging Studies Chest X-Ray 10/31/24 15:22 IMPRESSION: No evidence of pneumoperitoneum. No evidence of significant pulmonary edema. Lungs appear clear of acute disease. No pleural effusion or pneumothorax is noted. The cardiomediastinal silhouette is within the normal range. No acute osseous change is evident Reading Location: [place] [id number] Discharge Plan Triage Chief Complaint: Abd Pain ED Provider: Jimbo Klein Dx/Rx/DC Orders Prescriptions: No Action tizanidine 2 MG tablet 2 mg PO Q8H PRN PRN (Reason: Muscle Spasm) 0RF trazodone 50 MG tablet 50 mg PO QHS 0RF sennosides-docusate sodium 1 TABLET tablet 2 tab PO BID 0RF benztropine 2 MG tablet 1 mg PO DAILY 0RF divalproex 250 MG tablet 250 mg PO BREAKFAST 0RF cholecalciferol (vitamin D3) 1,000 UNIT tablet 2,000 unit PO DAILY 0RF lurasidone 40 MG tablet 120 mg PO QHS 0RF divalproex 500 MG tablet extended release 24 hr 500 mg PO QHS Qty: 30 3RF paliperidone 6 mg tablet extended release 24hr 6 mg PO QHS Primary Care Provider: Honey Haro Referrals: Honey Haro, DO [Primary Care Provider] - Print Language: Fijian
--- NOTE | 2024-10-31 14:56 | EKG12_ITS ---
Test Reason : ABD PAIN Blood Pressure : */* mmHG Vent. Rate : 73 BPM Atrial Rate : 73 BPM P-R Int : 216 ms QRS Dur : 138 ms QT Int : 414 ms P-R-T Axes : 52 22 39 degrees QTcB Int : 456 ms Sinus rhythm with 1st degree A-V block Right bundle branch block Abnormal ECG Confirmed by EDITH REES, YAIMA ([id number]), editorial specialist TYRONE MCCONNELL ([id number]) on 11/01/2024 10:08:37 AM Referred By: Jimbo Klein Confirmed By: YAIMA SHARMA MD
--- NOTE | 2024-10-31 14:56 | EKG12_ITS ---
Test Reason : ABD PAIN Blood Pressure : */* mmHG Vent. Rate : 73 BPM Atrial Rate : 73 BPM P-R Int : 216 ms QRS Dur : 138 ms QT Int : 414 ms P-R-T Axes : 52 22 39 degrees QTcB Int : 456 ms Sinus rhythm with 1st degree A-V block Right bundle branch block Abnormal ECG Confirmed by EDITH REES, YAIMA ([id number]), photograph editor TYRONE MCCONNELL ([id number]) on 11/01/2024 10:08:37 AM Referred By: Jimbo Klein Confirmed By: YAIMA SHARMA MD
--- NOTE | 2024-10-31 15:22 | RAD_ITS ---
PROCEDURE: CHEST 1 VIEW (PORTABLE) 10/31/2024 REASON FOR EXAM: UPPER ABDOMINAL PAIN TECHNIQUE: Frontal view of the chest. COMPARISON: None. RAD/Chest 1 View (Portable) IMPRESSION: No evidence of pneumoperitoneum. No evidence of significant pulmonary edema. Lungs appear clear of acute disease. No pleural effusion or pneumothorax is noted. The cardiomediastinal silhouette is within the normal range. No acute osseous change is evident Reading Location: [place] [id number]
--- NOTE | 2024-10-31 15:22 | RAD_ITS ---
PROCEDURE: CHEST 1 VIEW (PORTABLE) 10/31/2024 REASON FOR EXAM: UPPER ABDOMINAL PAIN TECHNIQUE: Frontal view of the chest. COMPARISON: None. RAD/Chest 1 View (Portable) IMPRESSION: No evidence of pneumoperitoneum. No evidence of significant pulmonary edema. Lungs appear clear of acute disease. No pleural effusion or pneumothorax is noted. The cardiomediastinal silhouette is within the normal range. No acute osseous change is evident Reading Location: [place] [address]
[2024-10-31 15:35] VITALS: BP 128/86; PULSE 71; RESP 16; O2SAT 99
[2024-10-31 15:46] LABS: Hematocrit 43.5 % (40-54); Hemoglobin 15.0 g/dL (13.0-16.5); Immature Granulocytes Count 0.030 X10^3/uL (0.0-0.0); Mean Corp Hgb Conc 34.5 g/dL (32-36); Mean Corpuscular Volume 91.0 fL (80-94); Mean Platelet Vol. 10.8 fl (6.2-12.0); NRBC Flagged by Analyzer 0 % (0-5); Platelet Count 204 K/mm3 (150-450); RBC Distribution Width CV 12.6 % (11.6-14.6); RBC Distribution Width SD 42.0 fl (35.1-43.9); Red Blood Count 4.78 M/mm3 (4.6-6.2); White Blood Count 8.7 K/mm3 (4.4-11.0)
[2024-10-31] MEDS: 0.9% Normal Saline (500mL Bag) 500 ML 1000 ML IV (15:46)
[2024-10-31 16:12] LABS: AST(SGOT) 21 U/L (<=37); Alanine Aminotransfer ALT/SGPT 32 U/L (<=46); Albumin, Serum 4.2 g/dL (3.5-5.0); Alkaline Phosphatase 76 U/L (40-129); Anion Gap 9 (5-15); BUN 13 mg/dL (4-19); BUN/Creat Ratio 17.1 RATIO (10-20); Calcium,Total 9.4 mg/dL (7.6-11.0); Carbon Dioxide 23.4 mmol/L (21.0-32.0); Chloride 109 mmol/L (98-108); Globulin 2.3 g/dL (2.2-4.2); Glucose 92 mg/dL (70-99); Lipase 12 U/L (13-75); Potassium 4.1 mmol/L (3.3-5.1); Troponin T High Sensitivity < 6 ng/L (<=22)
[2024-10-31 16:55] VITALS: BP 128/86; PULSE 71; RESP 16; TEMP 36.6; O2SAT 99
== END 2024-10-31 17:01 | disposition home or self-care (01) ==
PROVIDERS: Emergency Provider Emergency Medicine; PCP Family Medicine; Referring Provider Emergency Medicine; Visit Provider Emergency Medicine
DX: R10.13 Epigastric pain (principal); F20.9 Schizophrenia, unspecified; I44.0 Atrioventricular block, first degree; F41.9 Anxiety disorder, unspecified; F32.A Depression, unspecified; K21.9 Gastro-esophageal reflux disease without esophagitis; E66.9 Obesity, unspecified; F17.210 Nicotine dependence, cigarettes, uncomplicated; Z79.899 Other long term (current) drug therapy
CPT/HCPCS: 71045; 80053; 83690; 84484; 85025; 93005; 99285; A4216

== ENCOUNTER → 2025-04-16 | Outpatient (CLI) | payer MEDICAID, SELFPAY ==
[2025-04-16 16:48] LABS: Hematocrit 46.5 % (40-54); Hemoglobin 15.9 g/dL (13.0-16.5); Immature Granulocytes Count 0.020 X10^3/uL (0.0-0.0); Mean Corp Hgb Conc 34.2 g/dL (32-36); Mean Corpuscular Volume 92.4 fL (80-94); Mean Platelet Vol. 10.9 fl (6.2-12.0); NRBC Flagged by Analyzer 0 % (0-5); Platelet Count 243 K/mm3 (150-450); RBC Distribution Width CV 12.8 % (11.6-14.6); RBC Distribution Width SD 43.2 fl (35.1-43.9); Red Blood Count 5.03 M/mm3 (4.6-6.2); White Blood Count 8.7 K/mm3 (4.4-11.0)
[2025-04-16 17:39] LABS: AST(SGOT) 25 U/L (<=37); Alanine Aminotransfer ALT/SGPT 60 U/L (<=46); Albumin, Serum 4.4 g/dL (3.5-5.0); Alkaline Phosphatase 79 U/L (40-129); Anion Gap 13 (5-15); BUN 9 mg/dL (4-19); BUN/Creat Ratio 11.9 RATIO (10-20); Calcium,Total 9.8 mg/dL (7.6-11.0); Carbon Dioxide 21.3 mmol/L (21.0-32.0); Chloride 106 mmol/L (98-108); Cholesterol 160 mg/dL (<=200); Globulin 2.6 g/dL (2.2-4.2); Glucose 80 mg/dL (70-99); Low Density Lipoprotein Calc. 93 mg/dL; Potassium 4.0 mmol/L (3.3-5.1); Triglycerides 83 mg/dL; Very Low Density Lipoprotein 17 mg/dL (5-40); cholesterol:hdl ratio screen 3.10
== END | disposition home or self-care (01) ==
LOC: VSLAB 11:23
PROVIDERS: PCP Family Medicine; Referring Provider Family Medicine; Visit Provider Family Medicine
DX: Z00.00 Encounter for general adult medical examination without abnormal findings (principal); Z13.6 Encounter for screening for cardiovascular disorders
CPT/HCPCS: 36415; 80053; 80061; 83036; 84443; 85025